=== PATIENT | female | born 1960 | race Asian ===

== ENCOUNTER 2019-06-21 22:29 | Emergency (ER) | payer MEDICAID ==
[~2019-06-21] VITALS: Ht 157.5 cm; Wt 56.7 kg
[2019-06-21 23:09] VITALS: BP 138/79
--- NOTE | 2019-06-21 23:13 | NUR ---
ER Nurse Note: Pt walked in c/o RT knee pain s/o fall. Pt stated she was walking, tripped on unequal pavement and fell on her RT knee. Skin tear present with small dry blood. Pt able to move all extremities. Pt states pain on LT lower back. Pt denies head truama. Cap refill less than 3 secs on RT foot. All safety measures met; will continue to montior.
[2019-06-21] MEDS ORDERED: Tetanus/Diptheria/Pertussis IM ONE (23:30)
[2019-06-21] MEDS ORDERED: Bacitracin Oint UD TOPIC ONE (23:30)
[2019-06-21] MEDS ORDERED: Acetaminophen 500mg (ES) tab PO ONE (23:30)
--- NOTE | 2019-06-21 23:44 | NUR ---
ER Nurse Note: Pt taken to radiology. Will give meds and clean wound upon return.
[2019-06-22] MEDS ORDERED: TYLENOL EXTRA500 MG ORAL (00:58)
[2019-06-22] MEDS ORDERED: LIDODERM700 M1 TOPIC (00:58)
[2019-06-22 01:00] VITALS: BP 134/76
--- NOTE | 2019-06-22 01:00 | NUR ---
ER Nurse Note: Pt returned from x-ray. All meds given per ERMD orders. Wound cleaned and bandaged. Pt cleared by health care Provider for discharge. DC instructions/prescription was given and explained to pt and verbalized understanding of teachings. All medical deviecs such as ID band removed. Pt is AAO x4, ambulatory with steady gait and left with all personal belongings.
--- NOTE | 2019-06-22 04:15 | Emergency Room Report ---
History of Present Illness General Chief Complaint: Multiple Trauma/Fall Source: Patient Present Illness HPI 59-year-old female presents ED status post fall. States earlier today she had a mechanical trip and fall. Landed on her knees. Denies hitting her head or LOC. Complaining of lower back pain and bilateral knee pain. Tetanus unknown. Pain is dull, 7 out of 10, nonradiating. No other aggravating relieving factors. Denies any other associated symptoms Allergies: Coded Allergies: No Known Allergies (Unverified , 06/21/19) Patient History Past Medical History: DM, HTN Past Surgical History: none Pertinent Family History: none Social History: Denies: smoking, alcohol use, drug use Now: No Immunizations: UTD Reviewed Nursing Documentation: PMH: Agreed; PSxH: Agreed Nursing Documentation-PMH Past Medical History: No History, Except For Hx Hypertension: Yes Hx Diabetes: Yes Review of Systems All Other Systems: negative except mentioned in HPI Physical Exam Vital Signs Date Time Temp Pulse Resp B/P (MAP) Pulse Ox O2 Delivery O2 Flow Rate FiO2 06/21/19 22:40 98.4 80 16 138/79 (98) 97 Room Air Sp02 EP Interpretation: reviewed, normal General Appearance: no apparent distress, alert, GCS 15, non-toxic Head: normocephalic Eyes: bilateral eye normal inspection, bilateral eye PERRL ENT: normal ENT inspection Neck: normal inspection Respiratory: normal inspection Cardiovascular #1: normal inspection Gastrointestinal: normal inspection Rectal: deferred Genitourinary: no CVA tenderness, no vertebral tenderness Musculoskeletal: normal range of motion, tender - bilateral knee, other - paraspinal lumbar tenderness on left Neurologic: alert, motor strength/tone normal, oriented x3, sensory intact, responsive, speech normal Psychiatric: normal inspection Skin: no rash Lymphatic: normal inspection Medical Decision Making Diagnostic Impression: Primary Impression: Contusion, hip Qualified Codes: S70.02XA - Contusion of left hip, initial encounter ER Course Hospital Course 59-year-old F presents to ED complaining of lower back pain and bilateral knee pain s/p fall Differential diagnoses include: Fracture, dislocation, sprain, contusion Clinical course Patient placed on stretcher. After initial history and physical, I ordered pain medications, TDAP and Xrays Xrays prelim read shows no acute fracture/dislocation. Wounds irrigated. Given Tdap. Bacitracin dressing applied. I discussed findings with patient. Reassurance given. Will discharge to home. Safe for discharge for close outpatient follow-up. I will provide referrals Diagnosis - hip contusion Stable and discharged to home with prescription for tylenol, lidoderm. weight bear as tolerated. Followup with PMD. Return to ED if symptoms recur or worsen Other X-Ray Diagnostic Results Other X-Ray Diagnostic Results #1: X-Ray ordered: Pelvis + L hip # of Views/Limited Vs Complete: 3 View Indication: Pain EP Interpretation: Yes Interpretation: no dislocation, no soft tissue swelling, no fractures Impression: No acute disease Electronically Signed by: Electronically signed by Jeff Mo MD Other X-Ray Diagnostic Results #2: X-Ray ordered: R knee # of Views/Limited Vs Complete: 3 View Indication: Pain EP Interpretation: Yes Interpretation: no dislocation, no soft tissue swelling, no fractures Impression: No acute disease Electronically Signed by: Electronically signed by Jeff Mo MD Other X-Ray Diagnostic Results #3: X-Ray ordered: L knee # of Views/Limited Vs Complete: 3 View Indication: Pain EP Interpretation: Yes Interpretation: no dislocation, no soft tissue swelling, no fractures Impression: No acute disease Electronically Signed by: Electronically signed by Jeff Mo MD Last Vital Signs Date Time Temp Pulse Resp B/P (MAP) Pulse Ox O2 Delivery O2 Flow Rate FiO2 06/22/19 01:00 98.4 76 16 134/76 98 Room Air Status: improved Disposition: HOME, SELF-CARE Condition: Stable Scripts Lidocaine Patch* (Lidoderm Patch*) 1 Each Adh..patch 1 PATCH TOPIC DAILY, #7 PATCH 0 Refills Patch(es) may remain in place for up to 12 hours in any 24-hour period. Prov: Jeff Mo MD 06/22/19 Acetaminophen* (TYLENOL EXTRA STRENGTH*) 500 Mg Tablet 500 MG ORAL Q8H PRN for Prn Headache/Temp > 101, #30 TAB 0 Refills Prov: Jeff Mo MD 06/22/19 Referrals: NON PHYSICIAN (PCP) [facility] Open 24 hour /7 days a week by Appointment Only [address] [address] Patient Instructions: Contusion-SportsMed Jeff Mo MD Jun 22, 2019 04:15
--- NOTE | 2019-06-22 10:37 | Diagnostic Imaging Report ---
Indication: Reason For Exam: PAIN Technique: 3 views of the right knee Comparison: None Findings: No suprapatellar effusion. No acute fractures. No dislocations. The joint spaces are preserved. Impression: No acute process This agrees with the preliminary interpretation provided by the emergency room physician
--- NOTE | 2019-06-22 10:38 | Diagnostic Imaging Report ---
Indication: Left knee pain after falling and history Technique: 3 views of the left knee Comparison: None Findings:No acute fractures. No dislocations. There are vascular consultations. No suprapatellar effusion. The joint spaces are preserved. Impression: Negative This agrees with the preliminary interpretation provided by the emergency room physician
--- NOTE | 2019-06-22 10:41 | Diagnostic Imaging Report ---
Indication: Pain, fell into the Street Technique: One view of the pelvis, 2 views of the left hip Comparison: none Findings: No acute fractures. No dislocations. The joint spaces are preserved. Impression: No acute bony trauma This agrees with the preliminary interpretation provided by the emergency room physician
== END 2019-06-22 01:00 | disposition home or self-care (01) ==
LOC: EMR 23:59
DX: S70.02XA Contusion of left hip, initial encounter (principal); W01.0XXA Fall on same level from slipping, tripping and stumbling without subsequent striking against object, initial encounter; Y92.9 Unspecified place or not applicable; E11.9 Type 2 diabetes mellitus without complications; I10 Essential (primary) hypertension; M25.552 Pain in left hip; M25.551 Pain in right hip; Z23 Encounter for immunization
CPT/HCPCS: 73502; 73562; 90471; 90715; Z7502; 99284